=== PATIENT | male | born 1985 | race Caucasian/White ===

== ENCOUNTER 2018-10-01 07:56 | Emergency (ER) | payer BC ==
[~2018-10-01] VITALS: Ht 177.8 cm; Wt 62.6 kg
[2018-10-01 07:56] VITALS: BP_SYST 118
--- NOTE | 2018-10-01 07:56 | NUR ---
BROUGHT BACK TO BED #3 AND TRIAGED. REPORT GIVEN TO GRACE
--- NOTE | 2018-10-01 08:00 | NUR ---
Patient arrived via POV, AAOx4, and ambulatory with steady gait. Patient c/c of sore throat, feels swollen lumps to neck, weakness and dizziness x4 days. Patient calm and cooperative. Patient denies fever, chills, abdominal pain, and chest pain. No shortness of breathe noted, able to speak in full sentences. Will continue to follow up and monitor.
--- NOTE | 2018-10-01 08:02 | NUR ---
ER at bedside examining patient.
[2018-10-01 08:38] VITALS: BP_SYST 118
--- NOTE | 2018-10-01 08:38 | NUR ---
Patient given written and verbal discharge instructions and verbalizes understanding. ER MD discussed with patient the results and treatment provided. Patient in stable condition. ID arm band removed, patient kept as requested. Rx of Motrin, Tylenol, Augmentin given. Patient educated on pain management and to follow up with PMD. Pain Scale 3/10. Opportunity for questions provided and answered. Medication side effect fact sheet provided.
[2018-10-01] MEDS: cefTRIAXone 1 GM in LIDOCAINE 1%, 20 ML MDV 2.1 ML IM ONE (08:39)
[2018-10-01] MEDS: IBUPROFEN 600 MG TABLET PO ONE (08:40)
== END 2018-10-01 08:38 | disposition home or self-care (01) ==
LOC: SED 07:56
DX: J02.9 Acute pharyngitis, unspecified (principal)
CPT/HCPCS: 96372; 99283; J0696; J2001

== ENCOUNTER 2020-02-19 11:56 | Emergency (ER) | payer BC, OTHER ==
[~2020-02-19] VITALS: Ht 152.4 cm; Wt 59.0 kg
--- NOTE | 2020-02-19 12:00 | NUR ---
Patient triaged and placed in waiting room. VSS and patient appears in no acute distress at this time. Accompanied by self, awaiting available bed, and MD notified of need for MSE.
[2020-02-19 12:26] VITALS: BP_SYST 127
--- NOTE | 2020-02-19 12:30 | NUR ---
Pt borught by self, A&Ox4, pt presents to ER with upper abdominal pain, denies N/V/D , skin pink and warm, cap refill <3, VSS.
--- NOTE | 2020-02-19 14:15 | NUR ---
ER Dr. Ramírez at bedside examining patient.
[2020-02-19 14:51] VITALS: BP_SYST 127
--- NOTE | 2020-02-19 14:51 | NUR ---
Patient given written and verbal discharge instructions and verbalizes understanding. ER MD discussed with patient the results and treatment provided. Patient in stable condition. ID arm band removed. Rx of protonix, zofran given. Patient educated on pain management and to follow up with PMD. Pain Scale 0/10. Opportunity for questions provided and answered. Medication side effect fact sheet provided.
== END 2020-02-19 14:51 | disposition home or self-care (01) ==
LOC: SED 11:56
DX: K27.9 Peptic ulcer, site unspecified, unspecified as acute or chronic, without hemorrhage or perforation (principal); R10.13 Epigastric pain
CPT/HCPCS: 99283